=== PATIENT | female | born 2000 | race Caucasian/White ===

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

== ENCOUNTER 2019-06-14 22:46 | Emergency (ER) | payer BC ==
[~2019-06-14] VITALS: Ht 172.7 cm; Wt 49.0 kg
== END 2019-06-15 00:14 | disposition home or self-care (01) ==
LOC: ER 22:46
DX: F10.129 Alcohol abuse with intoxication, unspecified (principal); J45.909 Unspecified asthma, uncomplicated
CPT/HCPCS: 99283